=== PATIENT | female | born 1970 | race Caucasian/White ===

== ENCOUNTER 2019-06-02 18:10 | Emergency (ER) | payer BC, OTHER ==
[2019-06-02] MEDS: KETOROLAC 30 MG INJ IM (19:25)
== END 2019-06-02 22:10 | disposition home or self-care (01) ==
LOC: FTE 22:10
DX: S92.001A Unspecified fracture of right calcaneus, initial encounter for closed fracture (principal); W10.9XXA Fall (on) (from) unspecified stairs and steps, initial encounter; Y92.9 Unspecified place or not applicable
CPT/HCPCS: 73610; 73610-RT; 73630; 73650; 96372; 99284-25